=== PATIENT | female | born 2000 | race Caucasian/White ===

== ENCOUNTER → 2024-07-26 | Outpatient (CLI) | payer BC ==
[2024-07-27 03:40] LABS: HCG,Quantitative Serum <3.0 mIU/mL (0.0-6.0); Potassium 4.2 mmol/L (3.5-5.5)
== END | disposition home or self-care (01) ==
LOC: LABWHC1 15:10
PROVIDERS: ATTEND Internal Medicine
DX: L70.0 Acne vulgaris (principal)
CPT/HCPCS: 36415; 82565; 84132; 84520; 84702